=== PATIENT | female | born 1935 | race Caucasian/White ===

== ENCOUNTER 2023-12-23 04:08 | Inpatient (IN) ==
[2023-12-23] MEDS: ONDANSETRON 4 MG/2 ML VIAL IV ONE (04:54)
[2023-12-23] MEDS: IPRATROPIUM/ALBUTEROL 3 ML AMPUL.NEB NEB ONE (04:54)
[2023-12-23 05:05] LABS: Basophils # (Auto) 0.03 K/mcL (0.00-0.30); Basophils % (Auto) 0.5 % (0.0-2.0); Eosinophils # (Auto) 0.13 K/mcL (0.00-0.70); Eosinophils % (Auto) 2.2 % (0.0-7.0); Hemoglobin 9.8 g/dL (11.2-15.7); Lymphocytes # (Auto) 0.87 K/mcL (1.50-4.80); Lymphocytes % (Auto) 14.7 % (15.5-49.0); Mean Cell Volume 69.9 fL (80.0-100.0); Mean Corpuscular HGB Conc 29.7 g/dL (31.0-36.0); Mean Platelet Volume 9.4 fL (8.8-12.5); Monocytes # (Auto) 0.81 K/mcL (0.10-0.90); Monocytes % (Auto) 13.7 % (1.0-12.0); Neutrophils % (Auto) 68.4 % (38.0-78.0); Platelet Count 240 K/mcL (140-440); RBC 4.72 M/mcL (3.59-5.38); Red Cell Distribution Width 17.8 % (11.5-14.5); WBC 5.9 K/mcL (4.5-11.0)
[2023-12-23 05:26] LABS: ALT/SGPT < 5 U/L (<40); AST/SGOT 20 U/L (<32); Albumin 3.8 gm/dL (3.2-5.2); Albumin/Globulin Ratio 1.5 (1.0-2.3); Alkaline Phosphatase 107 U/L (39-117); Bilirubin,Total 0.3 mg/dL (0.1-1.0); Blood Urea Nitrogen 12 mg/dL (8-23); Calcium 8.7 mg/dL (8.6-10.4); Carbon Dioxide 23 mmol/L (22-30); Chloride 100 mmol/L (96-108); Globulin 2.6 gm/dL (2.2-3.7); Glomerular Filtration Rate 36; Glucose 125 mg/dL (70-105)
[2023-12-23] MEDS: morphine 4 MG/ML VIAL IV ONE (05:35)
[2023-12-23] MEDS: cefTRIAXone 1 GM VIAL IV ONE (08:48)
[2023-12-23] MEDS: AZITHROMYCIN 250 MG TABLET PO ONE (08:48)
[2023-12-23] MEDS: oxyCODONE IR 5 MG TABLET PO ONE (08:56)
[2023-12-23] MEDS ORDERED: ONDANSETRON 4 MG/2 ML VIAL IV PRN (11:21)
[2023-12-23] MEDS ORDERED: FUROSEMIDE 20 MG TABLET PO PRN (12:06)
[2023-12-23] MEDS: GABAPENTIN 100 MG CAPSULE PO SCH ×2 (12:27→20:32)
[2023-12-23] MEDS: DOCUSATE SODIUM 100 MG CAPSULE PO SCH (12:27)
[2023-12-23] MEDS: oxyCODONE IR 5 MG TABLET PO PRN (12:28)
[2023-12-23] MEDS ORDERED: METOPROLOL TARTRATE 5 MG/5 ML VIAL IV PRN (13:41)
[2023-12-23] MEDS: 0.9 % SODIUM CHLORIDE 10 ML SYRINGE IV SCH (14:52)
[2023-12-23 15:00] LABS: Appearance,Urine Clear (Clear); Bacteria,Urine Rare /hpf (0); Bilirubin,Urine Negative (Negative); Color,Urine Yellow; Culture Indicated,Urine Yes; Glucose,Urine (UA) Negative (Negative); Ketones,Urine Negative (Negative); Leukocyte Esterase,Urine Small /uL (Negative); Nitrate,Urine Negative (Negative); PH,Urine 6.5 (5.0-9.0); Protein,Urine Negative (Negative); Urine Blood Negative ery/mcL (Negative); Urine RBC 0 /hpf (0-3); Urine Squamous Epithelial Cell 2 /hpf (0-4); Urine WBC 6 /hpf (0-4); Urobilinogen,Urine Normal
[2023-12-23] MEDS: ACETAMINOPHEN 325 MG TABLET PO PRN (16:06)
[2023-12-23] MEDS: OMEPRAZOLE 20 MG CAPSULE PO SCH (16:07)
[2023-12-23] MEDS: BENZOCAINE/MENTHOL 1 LOZENGE PO PRN (16:41)
[2023-12-23] MEDS ORDERED: ENALAPRILAT 1.25 MG/ML VIAL IV PRN (17:42)
[2023-12-23] MEDS: SENNOSIDES 1 TABLET PO SCH (20:32)
[2023-12-23] MEDS: BACLOFEN 10 MG TABLET PO SCH (20:33)
[2023-12-23] MEDS: MIRTAZAPINE 15 MG TABLET PO SCH (20:33)
[2023-12-23] MEDS: ATORVASTATIN 10 MG TABLET PO SCH (20:39)
[2023-12-23] MEDS: ARIPIPRAZOLE 5 MG TABLET PO SCH (20:41)
[2023-12-23] MEDS: METOPROLOL TARTRATE 50 MG TABLET PO SCH (20:41)
[2023-12-23] MEDS: traZODone HCL 50 MG TABLET PO PRN (20:42)
[2023-12-23] MEDS: busPIRone 5 MG TABLET PO SCH (20:42)
[2023-12-23] MEDS: APIXABAN 2.5 MG TABLET PO SCH (20:42)
[2023-12-23] MEDS: cloNIDine HCL 0.1 MG TABLET PO SCH (20:43)
[2023-12-23] MEDS ORDERED: MAGNESIUM OXIDE 400 MG TABLET PO SCH (21:00)
[2023-12-24] MEDS: hydrALAZINE 20 MG/ML VIAL IV PRN (00:11)
[2023-12-24 06:48] LABS: Basophils # (Auto) 0.02 K/mcL (0.00-0.30); Basophils % (Auto) 0.4 % (0.0-2.0); Hematocrit 35.8 % (34.1-44.9); Hemoglobin 10.2 g/dL (11.2-15.7); Lymphocytes # (Auto) 1.65 K/mcL (1.50-4.80); Mean Cell Volume 72.2 fL (80.0-100.0); Mean Corpuscular HGB Conc 28.5 g/dL (31.0-36.0); Mean Platelet Volume 9.8 fL (8.8-12.5); Monocytes # (Auto) 0.82 K/mcL (0.10-0.90); Monocytes % (Auto) 14.4 % (1.0-12.0); Neutrophils % (Auto) 48.8 % (38.0-78.0); Platelet Count 248 K/mcL (140-440); RBC 4.96 M/mcL (3.59-5.38); Red Cell Distribution Width 18.2 % (11.5-14.5); WBC 5.7 K/mcL (4.5-11.0)
[2023-12-24 08:09] LABS: ALT/SGPT 12 U/L (<40); AST/SGOT 33 U/L (<32); Albumin 3.7 gm/dL (3.2-5.2); Albumin/Globulin Ratio 1.4 (1.0-2.3); Alkaline Phosphatase 118 U/L (39-117); Bilirubin,Direct < 0.2 mg/dL (0-0.3); Bilirubin,Total < 0.2 mg/dL (0.1-1.0); Blood Urea Nitrogen 14 mg/dL (8-23); Calcium 8.8 mg/dL (8.6-10.4); Carbon Dioxide 21 mmol/L (22-30); Chloride 101 mmol/L (96-108); Globulin 2.7 gm/dL (2.2-3.7); Glomerular Filtration Rate 36; Glucose 102 mg/dL (70-105); Lactate Dehydrogenase 217 U/L (135-225); Phosphorous 3.4 mg/dL (2.5-4.5); Triglycerides 106 mg/dL (<150); Uric Acid 3.2 mg/dL (2.5-8.0)
[2023-12-24] MEDS: LORazepam 0.5 MG TABLET PO SCH (08:40)
[2023-12-24] MEDS: DULoxetine 30 MG CAPSULE PO SCH (08:40)
[2023-12-24] MEDS: cefTRIAXone 1 GM VIAL IV SCH (08:41)
[2023-12-24] MEDS ORDERED: NON FORMULARY MEDICATION 1 DOSE MISCELL (Duloxetine 60 mg capsule,delayed release(DR/EC)) PO SCH (09:00)
[2023-12-24] MEDS ORDERED: VITAMIN B COMPLEX 1 CAPSULE PO SCH (09:00)
[2023-12-24] MEDS ORDERED: VIT A,C & E/LUTEIN/MINERALS TABLET PO SCH (09:00)
[2023-12-24] MEDS: AZITHROMYCIN 500 MG in DEXTROSE 5% IN WATER 250 ML IV SCH (09:38)
[2023-12-24] MEDS: guaiFENesin/DEXTROMETHORPHAN 5ML UD CUP PO PRN (09:42)
[2023-12-25] MEDS: LOSARTAN 50 MG TABLET PO SCH (08:35)
[2023-12-25] MEDS: amLODIPine 10 MG TABLET PO SCH (08:36)
[2023-12-25] MEDS: BENZONATATE 100 MG CAPSULE PO ONE (09:40)
[2023-12-26] MEDS: IPRATROPIUM/ALBUTEROL 3 ML AMPUL.NEB NEB PRN (07:40)
[2023-12-26] MEDS: methylPREDNISolone SOD SUCC 125 MG/2 ML VIAL IV ONE (09:16)
[2023-12-26] MEDS: BENZONATATE 100 MG CAPSULE PO PRN (09:49)
== END 2023-12-26 14:20 | disposition home or self-care (01) | DRG 193 ==
LOC: ED 04:08 → MEDSUR 10:55
PROVIDERS: ADMIT Internal Medicine; ATTEND Internal Medicine

== ENCOUNTER 2024-07-31 05:36 | Inpatient (IN) ==
[2024-07-31] MEDS: ASPIRIN 81 MG TAB.CHEW CHEWED ONE (06:15)
[2024-07-31 06:52] LABS: Basophils # (Auto) 0.05 K/mcL (0.00-0.30); Basophils % (Auto) 0.4 % (0.0-2.0); Eosinophils # (Auto) 0.06 K/mcL (0.00-0.70); Eosinophils % (Auto) 0.5 % (0.0-7.0); Hematocrit 38.6 % (34.1-44.9); Hemoglobin 11.1 g/dL (11.2-15.7); Lymphocytes # (Auto) 1.06 K/mcL (1.50-4.80); Mean Cell Volume 71.3 fL (80.0-100.0); Mean Corpuscular HGB Conc 28.8 g/dL (31.0-36.0); Mean Platelet Volume 9.2 fL (8.8-12.5); Monocytes # (Auto) 1.02 K/mcL (0.10-0.90); Monocytes % (Auto) 8.6 % (1.0-12.0); Neutrophils % (Auto) 81.1 % (38.0-78.0); Platelet Count 334 K/mcL (140-440); RBC 5.41 M/mcL (3.59-5.38); Red Cell Distribution Width 18.6 % (11.5-14.5); WBC 11.8 K/mcL (4.5-11.0)
[2024-07-31 07:00] LABS: INR 1.1 (0.9-1.1); Prothrombin Time 15.1 sec (11.9-14.5)
[2024-07-31 07:16] LABS: ALT/SGPT 8 U/L (<40); AST/SGOT 20 U/L (<32); Albumin 4.2 gm/dL (3.2-5.2); Albumin/Globulin Ratio 1.4 (1.0-2.3); Alkaline Phosphatase 127 U/L (39-117); Bilirubin,Total 0.6 mg/dL (0.1-1.0); Blood Urea Nitrogen 17 mg/dL (8-23); Calcium 9.7 mg/dL (8.6-10.4); Carbon Dioxide 21 mmol/L (22-30); Chloride 101 mmol/L (96-108); Globulin 2.9 gm/dL (2.2-3.7); Glomerular Filtration Rate 40; Glucose 120 mg/dL (70-105); Sodium 139 mmol/L (133-145)
[2024-07-31 08:00] LABS: Appearance,Urine Clear (Clear); Bacteria,Urine Few /hpf (0); Bilirubin,Urine Negative (Negative); Color,Urine Yellow; Glucose,Urine (UA) Negative (Negative); Ketones,Urine Negative (Negative); Leukocyte Esterase,Urine Negative /uL (Negative); Nitrate,Urine Negative (Negative); PH,Urine 7.5 (5.0-9.0); Protein,Urine Negative (Negative); Specific Gravity,Urine 1.015 (1.000-1.035); Urine Blood Negative ery/mcL (Negative); Urine RBC 1 /hpf (0-3); Urine Squamous Epithelial Cell 0 /hpf (0-4); Urine WBC 1 /hpf (0-4); Urobilinogen,Urine Normal
[2024-07-31] MEDS: oxyCODONE IR 5 MG TABLET PO ONE (08:14)
[2024-07-31] MEDS: AZITHROMYCIN 500 MG in 0.9 % SODIUM CHLORIDE 250 ML IV ONE (08:49)
[2024-07-31] MEDS: cefTRIAXone 1 GM VIAL IV ONE (08:49)
[2024-07-31] MEDS ORDERED: POTASSIUM CHLORIDE 20 MEQ TABLET PO PRN ×2 (10:15)
[2024-07-31] MEDS ORDERED: MAGNESIUM SULFATE 2 GM/50 ML BAG IV PRN (10:15)
[2024-07-31] MEDS ORDERED: ACETAMINOPHEN 325 MG TABLET PO PRN (10:15)
[2024-07-31] MEDS ORDERED: POTASSIUM CHLORIDE 40 MEQ in DEXTROSE 5% IN WATER 500 ML IV PRN (10:15)
[2024-07-31] MEDS ORDERED: METOPROLOL TARTRATE 5 MG/5 ML VIAL IV PRN (10:15)
[2024-07-31] MEDS ORDERED: IPRATROPIUM/ALBUTEROL 3 ML AMPUL.NEB NEB PRN (10:15)
[2024-07-31] MEDS ORDERED: SENNOSIDES 1 TABLET PO PRN (10:15)
[2024-07-31] MEDS ORDERED: ONDANSETRON 4 MG/2 ML VIAL IV PRN (10:15)
[2024-07-31] MEDS ORDERED: LABETALOL HCL 20 MG/4 ML VIAL IV PRN (10:15)
[2024-07-31] MEDS ORDERED: POLYETHYLENE GLYCOL 3350 17 GM PACKET PO PRN (10:15)
[2024-07-31] MEDS ORDERED: METOCLOPRAMIDE 10 MG/2 ML VIAL IV PRN (10:15)
[2024-07-31 11:15] LABS: Iron 26 ug/dL (37-145); TIBC Calculation 350 ug/dl (228-428); Transferrin % Saturation 7 % (15-50)
[2024-07-31 11:19] LABS: Retic Absolute 0.06 M/mcL (0.02-0.10)
[2024-07-31] MEDS: DOCUSATE SODIUM 100 MG CAPSULE PO SCH (13:12)
[2024-07-31] MEDS: IRON POLYSACCHARIDE COMPLEX 150 MG CAPSULE PO SCH (13:26)
[2024-07-31] MEDS: 0.9 % SODIUM CHLORIDE 10 ML SYRINGE IV SCH (14:26)
[2024-07-31] MEDS ORDERED: LORazepam 0.5 MG TABLET PO PRN (14:30)
[2024-07-31] MEDS: oxyCODONE IR 5 MG TABLET PO PRN (14:59)
[2024-07-31] MEDS: GABAPENTIN 100 MG CAPSULE PO SCH (14:59)
[2024-07-31] MEDS: OMEPRAZOLE 20 MG CAPSULE PO SCH (16:26)
[2024-07-31] MEDS: MIRTAZAPINE 15 MG TABLET PO SCH (20:05)
[2024-07-31] MEDS: cloNIDine HCL 0.1 MG TABLET PO SCH (20:07)
[2024-07-31] MEDS: METOPROLOL TARTRATE 50 MG TABLET PO SCH (20:07)
[2024-07-31] MEDS: ATORVASTATIN 10 MG TABLET PO SCH (20:08)
[2024-07-31] MEDS: APIXABAN 2.5 MG TABLET PO SCH (20:08)
[2024-07-31] MEDS: busPIRone 5 MG TABLET PO SCH (20:08)
[2024-08-01 06:09] LABS: Basophils # (Auto) 0.04 K/mcL (0.00-0.30); Basophils % (Auto) 0.6 % (0.0-2.0); Eosinophils # (Auto) 0.17 K/mcL (0.00-0.70); Eosinophils % (Auto) 2.4 % (0.0-7.0); Hematocrit 30.2 % (34.1-44.9); Hemoglobin 8.9 g/dL (11.2-15.7); Lymphocytes # (Auto) 1.34 K/mcL (1.50-4.80); Lymphocytes % (Auto) 18.5 % (15.5-49.0); Mean Cell Volume 70.7 fL (80.0-100.0); Mean Corpuscular HGB Conc 29.5 g/dL (31.0-36.0); Mean Platelet Volume 9.5 fL (8.8-12.5); Monocytes % (Auto) 11.1 % (1.0-12.0); Neutrophils % (Auto) 67.1 % (38.0-78.0); Platelet Count 284 K/mcL (140-440); RBC 4.27 M/mcL (3.59-5.38); Red Cell Distribution Width 17.8 % (11.5-14.5); WBC 7.2 K/mcL (4.5-11.0)
[2024-08-01 06:27] LABS: ALT/SGPT 6 U/L (<40); AST/SGOT 15 U/L (<32); Albumin 3.6 gm/dL (3.2-5.2); Albumin/Globulin Ratio 1.5 (1.0-2.3); Alkaline Phosphatase 94 U/L (39-117); Bilirubin,Direct 0.3 mg/dL (<0.3); Bilirubin,Total 0.6 mg/dL (0.1-1.0); Blood Urea Nitrogen 15 mg/dL (8-23); Calcium 9.2 mg/dL (8.6-10.4); Carbon Dioxide 25 mmol/L (22-30); Chloride 103 mmol/L (96-108); Globulin 2.4 gm/dL (2.2-3.7); Glomerular Filtration Rate 40; Glucose 116 mg/dL (70-105); Lactate Dehydrogenase 147 U/L (135-225); Phosphorous 3.5 mg/dL (2.5-4.5); Potassium 3.7 mmol/L (3.3-5.1); Sodium 140 mmol/L (133-145); Triglycerides 63 mg/dL (<150)
[2024-08-01] MEDS ORDERED: amLODIPine 10 MG TABLET PO SCH (09:00)
[2024-08-01] MEDS ORDERED: LOSARTAN 50 MG TABLET PO SCH (09:00)
[2024-08-01] MEDS: ARIPIPRAZOLE 5 MG TABLET PO SCH (09:19)
[2024-08-01] MEDS: DULoxetine 30 MG CAPSULE PO SCH (09:19)
[2024-08-01] MEDS: AZITHROMYCIN 500 MG in 0.9 % SODIUM CHLORIDE 250 ML IV SCH (09:19)
[2024-08-01] MEDS: guaiFENesin 600 MG TAB.SR.12H PO SCH (09:20)
[2024-08-01] MEDS: cefTRIAXone 1 GM VIAL IV SCH (09:34)
[2024-08-01] MEDS: BACLOFEN 10 MG TABLET PO PRN (12:42)
[2024-08-01] MEDS: DULoxetine 30 MG CAPSULE PO ONE (20:23)
[2024-08-02] MEDS: hydrALAZINE 20 MG/ML VIAL IV PRN (05:07)
[2024-08-02 05:57] LABS: Hematocrit 31.2 % (34.1-44.9); Hemoglobin 9.2 g/dL (11.2-15.7)
[2024-08-02 06:43] LABS: Blood Urea Nitrogen 13 mg/dL (8-23); Calcium 9.1 mg/dL (8.6-10.4); Carbon Dioxide 24 mmol/L (22-30); Chloride 104 mmol/L (96-108); Glomerular Filtration Rate 44; Glucose 119 mg/dL (70-105); Potassium 3.5 mmol/L (3.3-5.1); Sodium 140 mmol/L (133-145)
[2024-08-02] MEDS: LOSARTAN 50 MG TABLET PO SCH (08:42)
[2024-08-02] MEDS: amLODIPine 10 MG TABLET PO SCH (08:42)
[2024-08-02] MEDS ORDERED: DULoxetine 30 MG CAPSULE PO SCH (21:00)
== END 2024-08-02 12:49 | disposition home or self-care (01) | DRG 193 ==
LOC: ED 05:36 → ICU 10:04
PROVIDERS: ADMIT Internal Medicine; ATTEND Internal Medicine